=== PATIENT | male | born 1970 | race Caucasian/White ===

== ENCOUNTER → 2024-04-08 08:16 | Outpatient (REF) | payer OTHER, SELFPAY | LOC: RCS 08:16 | PROVIDERS: ATTENDING PHYSICIAN Internal Medicine Cardiovascular Disease; FAMILY PHYSICIAN Family Medicine | DX: R07.2 Precordial pain (principal); R06.09 Other forms of dyspnea | CPT/HCPCS: 93017; 93350 ==

== ENCOUNTER → 2024-10-13 15:24 | Outpatient (REF) | payer OTHER, SELFPAY | LOC: HWRAD 15:24 | PROVIDERS: ATTENDING PHYSICIAN Family Medicine | DX: H92.02 Otalgia, left ear (principal); R22.0 Localized swelling, mass and lump, head | CPT/HCPCS: 70480 ==

== ENCOUNTER → 2024-12-15 08:01 | Outpatient (REF) | payer OTHER, SELFPAY | LOC: HWRAD 08:01 | PROVIDERS: ATTENDING PHYSICIAN Internal Medicine Endocrinology, Diabetes & Metabolism; FAMILY PHYSICIAN Family Medicine | DX: E04.1 Nontoxic single thyroid nodule (principal) | CPT/HCPCS: 76536 ==

== ENCOUNTER → 2024-12-29 07:31 | Outpatient (REF) | payer OTHER, SELFPAY ==
[2024-12-29 07:40] VITALS: BP 161/94; BP_SYST 80
[2024-12-29 08:30] VITALS: BP 161/94
== END ==
LOC: RADI 07:31
PROVIDERS: ATTENDING PHYSICIAN Internal Medicine Endocrinology, Diabetes & Metabolism
DX: E04.1 Nontoxic single thyroid nodule (principal)
CPT/HCPCS: 88173; 10005

== ENCOUNTER 2025-02-01 09:07 | Inpatient (IN) | payer OTHER, SELFPAY ==
[2025-01-26 08:55] LABS: Hematocrit 42.2 % (39.0-52.0); Hemoglobin 13.8 g/dL (13.0-18.0); Mean Corp Hgb Conc. 32.7 g/dL (33.0-37.0); Mean Corpuscular Hgb 27.4 pg (27.0-31.0); Mean Corpuscular Volume 83.7 fL (80.0-94.0); Mean Platelet Volume 10.4 fL (7.4-10.4); Platelet Count 323 10^3/uL (130-400); Red Blood Cell Count 5.04 10^6/uL (4.70-6.10); Red Cell Dist. Width 13.2 % (11.5-14.5); White Blood Cell Count 9.1 10^3/uL (4.8-10.8)
[2025-01-26 09:26] LABS: INR 0.89; PT 12.5 Sec (11.4-14.6)
[2025-01-26 09:27] LABS: APTT 32.3 Sec (23.4-35.0)
[2025-01-26 09:40] LABS: Albumin 4.4 g/dl (3.5-5.0); Chloride 99 mmol/L (98-107); Potassium 4.8 mmol/L (3.5-5.1); Sodium 139 mmol/L (135-145)
[2025-01-26 09:54] LABS: ALT (SGPT) 53 U/L (0-50); AST (SGOT) 39 U/L (17-59); Alkaline Phosphatase 70 U/L (38-126); Blood Urea Nitrogen 17 mg/dl (9-20); Carbon Dioxide 28 mmol/L (22-30); Glucose 169 mg/dl (70-99); Total Bilirubin 0.7 mg/dl (0.2-1.3); Total Protein 7.7 g/dl (6.3-8.2); eGFR > 60.00
[2025-01-26 14:15] VITALS: BMI 28.5
[2025-02-01] VITALS (14 sets, daily range): BP systolic 130–174; BP diastolic 72–104; BMI 29.7
[2025-02-01] MEDS: HEPARIN 5000 UNITS SC (09:34)
[2025-02-01] MEDS: NEURONTIN 300 MG PO (09:34)
[2025-02-01] MEDS: TYLENOL 1000 MG PO (09:34)
[2025-02-01] MEDS: NORMOSOL-R/PLASMALYTE-A 1000 IV (09:35)
[2025-02-01 09:36] LABS: Glucose - Point of Care 156 mg/dl (70-99)
[2025-02-01 11:48] LABS: Glucose - Point of Care 197 mg/dl (70-99)
--- NOTE | 2025-02-01 11:51 | OR.RPT ---
Operative Report
Operative Report
DATE OF OPERATION: February 01, 2025
PREOPERATIVE DIAGNOSIS: �Thyroid Cancer - C73
POSTOPERATIVE DIAGNOSIS: Same
SURGEON: Abilio Naik M.D.
OPERATION: �Left Thyroidectomy and Full Neck Dissection - 45030
ANESTHESIA: GET
ESTIMATED BLOOD LOSS: 3 cc
DRAINS: None
SPECIMEN: �Left thyroid lobe and isthmus and pretracheal and left paratracheal tissue
FINDINGS: isthmic tumor
COMPLICATIONS:� None
PROCEDURE:
The patient was taken to the operating room and placed in the usual supine position. After adequate general endotracheal anesthesia was established, the patient�s neck was extended, prepped, and draped in the typical sterile fashion. A 4 cm
transcervical incision was made two fingerbreadths above the sternal notch. The skin incision was made with the #15 blade, which was taken through the skin into the subcutaneous tissue. The underlying platysma muscle was divided, and subplatysmal
flaps were created superiorly to the thyroid cartilage and inferiorly to the sternal notch. Strap muscles were identified and at the midline.
The tumor in the isthmus was identified. Attention was turned to the patient�s left thyroid lobe. The left thyroid lobe was mobilized medially. During this process, the left middle thyroid vein and inferior thyroid artery were dissected and ligated
with Ligasure. Next, the left superior pole was taken down by dissecting and transecting the superior pole vessels with a Ligasure. The left thyroid lobe was mobilized medially.
During this process, the left recurrent laryngeal nerve was identified and preserved throughout its entire course. The left superior parathyroid gland was identified and preserved. The left thyroid lobe with isthmus was resected off the trachea and
sent to the pathology department.
At this time, the neck dissection was performed. The pretracheal tissue extending into the superior mediastinum was dissected. Next the tissue between the carotid artery to the trachea into the anterior mediastinum was carefully dissected. The
previously identified recurrent laryngeal nerve and parathyroid gland was preserved. The tissue was removed and sent to the pathology department.
After obtaining adequate hemostasis, the strap muscle was approximated with #3-0 Vicryl in a running fashion, and platysma muscles were reapproximated with #3-0 Vicryl in an interrupted fashion, and the skin was approximated with #4-0 Monocryl in a
running subcuticular fashion. Steri-strips and sterile dressings were placed. The patient tolerated the procedure well. The final instrument, needle, and sponge counts were correct.
[2025-02-01] MEDS: DILAUDID 0.5 MG IV (12:34)
--- NOTE | 2025-02-08 08:43 | PN.CDI ---
CDI
- -
CDI:
Physician Documentation Request
Admit Date: 02/01/25 09:07
Dear Doctor Gumaro,
Please review the following and provide your response in the progress notes.
Clinical Indicators:
The diagnosis of 'Left paratracheal level 6 tissue. 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
Please indicate in your progress notes if you are in agreement that the above diagnosis is valid for this patient:
____ - Metastatic papillary thyroid carcinoma in one of four lymph nodes is a valid diagnosis (Please include it in your progress notes)
____ - Metastatic papillary thyroid carcinoma in one of four lymph nodes is not a valid diagnosis for this patient
____ - Metastatic papillary thyroid carcinoma in one of four lymph nodes is not yet confirmed but remains a suspected condition
____ - Other
____ - Unable to determine
Use of terms such as suspected, likely, concern for, or probable (associated with a specific diagnosis that is being evaluated, monitored, or treated as if it exists) are acceptable and can be coded in the inpatient setting, when documented at the
time of discharge.
Thank you,
Andra Bradford
Medical Director Occupational Health
Please use your independent medical judgment in providing your response.
--- NOTE | 2025-02-22 10:17 | W.PN.SURGUPD ---
Surgical Update
Surgical Update
02/02/24
Metastatic papillary thyroid carcinoma in one of four lymph nodes as per final pathology report
== END 2025-02-02 14:25 | disposition home or self-care (01) | DRG 627 ==
LOC: AMOS 09:07
PROVIDERS: ADMITTING PHYSICIAN Surgery; FAMILY PHYSICIAN Family Medicine
PROC: 0GBG0ZZ Excision of Left Thyroid Gland Lobe, Open Approach (ICD-10-PCS; 2025-02-01)
PROC: 07T20ZZ Resection of Left Neck Lymphatic, Open Approach (ICD-10-PCS; 2025-02-01)
DX: C73 Malignant neoplasm of thyroid gland (principal)
CPT/HCPCS: 88307; 36415; 80053; 82962; 85027; 85610; 85730; 93005; C1776

== ENCOUNTER → 2025-04-15 17:26 | Outpatient (REF) | payer OTHER, SELFPAY | LOC: RAD 17:26 | PROVIDERS: ATTENDING PHYSICIAN Family Medicine; FAMILY PHYSICIAN Family Medicine | DX: R05.1 Acute cough (principal) | CPT/HCPCS: 71046 ==

== ENCOUNTER → 2025-04-28 13:16 | Outpatient (REF) | payer OTHER, SELFPAY | LOC: RSP 13:16 | PROVIDERS: ATTENDING PHYSICIAN Family Medicine; FAMILY PHYSICIAN Family Medicine | DX: R05.1 Acute cough (principal) | CPT/HCPCS: 94010 ==

== ENCOUNTER → 2025-07-06 11:01 | Outpatient (REF) | payer OTHER, SELFPAY | LOC: DHSLP 11:01 | PROVIDERS: ATTENDING PHYSICIAN Internal Medicine Critical Care Medicine; FAMILY PHYSICIAN Family Medicine | DX: G47.30 Sleep apnea, unspecified (principal); R06.83 Snoring | CPT/HCPCS: 95800 ==

== ENCOUNTER → 2025-07-20 08:16 | Outpatient (REF) | payer OTHER, SELFPAY | LOC: MRI 3T 08:16 | PROVIDERS: ATTENDING PHYSICIAN Nurse Practitioner Family; FAMILY PHYSICIAN Family Medicine | DX: K75.81 Nonalcoholic steatohepatitis (NASH) (principal) | CPT/HCPCS: 74183; A9575 ==